=== PATIENT | male | born 1950 | race Caucasian/White ===

== ENCOUNTER → 2023-09-02 | Outpatient (CLI) | payer OTHER, SELFPAY ==
--- NOTE | 2023-09-02 | PROSBIL_PTH ---
PATIENT: TAHIR RYAN V LOC: [facility] U#:[id number] AGE/SX: 73/M ROOM: RE09/02/[address]: Dr. Justin Feliciano MD : [id number] BED: DIS: 09/02/2023 SPEC #: [id number] RECD: 09/02/23 16:16 STATUS: JUDD KIMMY #: [id number] KEVIN: 09/02/23 00:[address]: Justin Feliciano DEPT: SURGICAL PATHOLOGY RECD BY: Quincy Gordillo Tissues: A - PROSTATE RIGHT B - PROSTATE RIGHT C - PROSTATE RIGHT D - PROSTATE LEFT E - PROSTATE LEFT F - PROSTATE LEFT Procedures: PROSTATE BX HEADER OPERATION: Prostate biopsy PRE-OP DIAGNOSIS: Elevated PSA TISSUE SUBMITTED: A - Right apex, B - Right mid, C - Right base, D - Left apex, E - Left mid, F - Left base MICROSCOPIC DIAGNOSIS A. Right prostate, apex, core biopsy: Prostatic adenocarcinoma. Rizwana grade: 4+4=8 Number of cores involved: 1/1 Proportion of tissue involved: ~50% Perineural invasion: Not identified. Greatest tumor length: 0.5 cm B. Right prostate, mid, core biopsy: Prostatic adenocarcinoma. Bypro grade: 4+3=7 Number of cores involved: 1/1 Proportion of tissue involved: ~75% Perineural invasion: Not identified. Greatest tumor length: 1.0 cm C. Right prostate, base, core biopsy: Prostatic adenocarcinoma. Rizwana grade: 5+3=8 Number of cores involved: 1/1 Proportion of tissue involved: ~90% Perineural invasion: Present, focal. Greatest tumor length: 1.0 cm See comment. D. Left prostate, apex, core biopsy: Prostatic adenocarcinoma. Bypro grade: 3+4=7 Number of cores involved: 1/1 Proportion of tissue involved: 75% Perineural invasion: Present, focal. Greatest tumor length: 0.7 cm E. Left prostate, mid, core biopsy: Prostatic adenocarcinoma. Bypro grade: 5+4=9 Number of cores involved: 1/1 Proportion of tissue involved: ~75% Perineural invasion: Not identified. Greatest tumor length: 0.8 cm F. Left prostate, base, core biopsy: Prostatic adenocarcinoma. Bypro grade: 5+4=9 Number of cores involved: 1/1 Proportion of tissue involved: ~75% Perineural invasion: Not identified. Greatest tumor length: 0.8 cm SJ:manjinder 09/04/2023 COMMENT C. Tertiary pattern 4 is also noted. Case has been reviewed in consultation with Dr. Ward who concurs with the above diagnosis. IDC:AM MICROSCOPIC DESCRIPTION Slides are reviewed. GROSS DESCRIPTION A - Received is one container designated prostate, right apex. The specimen consists of one elongated fragment of light baumann-white soft tissue measuring 1.2 cm in length and 0.1 cm in diameter. The specimen is totally submitted in one cassette. B - Received is one container designated prostate, right mid. The specimen consists of one elongated fragment of light baumann-white soft tissue measuring 1.5 cm in length and 0.1 cm in diameter. The specimen is totally submitted in one cassette. C - Received is one container designated prostate, right base. The specimen consists of one elongated fragment of light baumann-white soft tissue measuring 1.2 cm in length and 0.1 cm in diameter. The specimen is totally submitted in one cassette. D - Received is one container designated prostate, left apex. The specimen consists of one elongated fragment of light baumann-white soft tissue measuring 1.4 cm in length and 0.1 cm in diameter. The specimen is totally submitted in one cassette. E - Received is one container designated prostate, left mid. The specimen consists of one elongated fragment of light baumann-white soft tissue measuring 1.5 cm in length and 0.1 cm in diameter. The specimen is totally submitted in one cassette. F - Received is one container designated prostate, left base. The specimen consists of one elongated fragment of light baumann-white soft tissue measuring 1.5 cm in length and 0.1 cm in diameter. The specimen is totally submitted in one cassette. / SJ:rg 09/03/2023 TC:0 CPT: G0146
== END | disposition home or self-care (01) ==
LOC: LABSPEC 17:11
PROVIDERS: Referring Provider Urology; Visit Provider Urology
DX: R97.20 Elevated prostate specific antigen [PSA] (principal)
CPT/HCPCS: 88305; G0416

== ENCOUNTER 2023-12-03 09:08 | Day surgery (SDC) | payer SELFPAY, OTHER ==
[2023-12-03] VITALS (7 sets, daily range): BP systolic 104–139; BP diastolic 55–75; PULSE 56–68; RESP 12–16; TEMP 35.9–36.6; O2SAT 93–100; BMI 23.8
[2023-12-03] MEDS: Lactated Ringers 1,000 ML 15 ML IV (09:48)
--- NOTE | 2023-12-03 09:59 | HP.PCM_ITS ---
HPI - General General Date of Service: 12/03/23 Chief Complaint: Prostate cancer HPI Narrative TAHIR RYAN, is a 73 M who presents 73-year-old male was elected to undergo radiation therapy for prostate cancer today working to place [employer] gel and also markers in the prostate [facility] Medical History (Updated 11/25/23 @ 14:40 by Mariano Heath) Atrial fibrillation Benign prostatic hyperplasia (BPH) with urinary urgency Cardiology follow-up encounter Cystic mass of pancreas Dermatitis Diabetes mellitus Dysuria Elevated PSA Hypertension Nocturia Phlebitis and thrombophlebitis Primary prostate cancer identified by needle biopsy (T1c) Psoriasis Smoker Wears glasses Home Medications diltiazem HCl 180 mg capsule,extended release 24 hr 180 mg PO DAILY 09/19/23 [History Last Taken Unknown] hydrochlorothiazide 25 mg tablet 25 mg PO DAILY 09/19/23 [History Last Taken 12/03/23] saw palm 160 mg-vit E 100 unit-selen 100 rcv-fras-tjkubb-pygeum tablet ([employer]) 1 tab PO .ALONDRA 09/19/23 [History Last Taken Unknown] saw palmetto 160 mg capsule 160 mg PO BID 09/19/23 [History Last Taken Unknown] tamsulosin 0.4 mg capsule (Flomax) 0.4 mg PO .BID 09/19/23 [History Last Taken Unknown] glipizide 5 mg tablet 5 mg PO DAILY 10/07/23 [History Last Taken 12/03/23] leuprolide (3 month) 22.5 mg (3 month) subcutaneous syringe (Eligard) 22.5 mg subcut .Q3MON 11/25/23 [History Last Taken Unknown] Allergy/AdvReac Type Severity Reaction Status Date / Time hydrocodone [From Vicodin] Allergy Unknown Other Verified 12/03/23 09:32 Family History Brother Prostate CA Mother Diabetes Daughter FH: kidney cancer Surgical History History of bilateral knee replacement Social History Smoking Status: Current every day smoker tobacco type: cigars alcohol intake: never Vital Signs Vital Signs Vital Signs: 12/03/23 09:34 12/03/23 09:34 Temperature 97.6 F L Temperature Source Temporal Pulse Rate 68 Respiratory Rate 12 Respiratory Pattern Normal Blood Pressure 139/75 H Blood Pressure Mean 96 Blood Pressure Source Monitor Blood Pressure Position Semi-Fowlers Blood Pressure Location Left Arm Pulse Ox 99 Oxygen Delivery Method Room Air Weight Weight: 63 kg Body Mass Index (BMI) 23.8
--- NOTE | 2023-12-03 10:00 | PCM.DC ---
Discharge Instructions Diet Discharge Diet: No restrictions Activity Discharge Activity: Return to Normal Activity and May Not Drive (while taking narcotic pain medications.) Dressing / Incision Call your doctor if you observe: Fever of 101 or Higher Follow Up Care Please Follow Up With: Justin Feliciano MD When: Call [phone] for an appointment Test Results: Test results from this visit will be discussed in further detail at your follow-up appointment, if applicable. Discharge Plan Admission Primary Reason for Your Visit: markers and gel Attending Provider: Justin Feliciano Primary Care Provider: Paulina Jacome NP Discharge Orders/Prescriptions Prescriptions: Continued glipizide 5 mg tablet 5 mg PO DAILY tamsulosin [Flomax] 0.4 mg capsule 0.4 mg PO .BID diltiazem HCl 180 mg capsule,extended release 24hr 180 mg PO DAILY hydrochlorothiazide 25 mg tablet 25 mg PO DAILY Prostate Health 160-100-100 mg-unit-mcg tablet 1 tab PO .ALONDRA saw palmetto 160 mg capsule 160 mg PO BID Rx Instructions: give with meal/snack Eligard (3 month) 22.5 mg syringe 22.5 mg subcut .Q3MON Other Ambulatory Orders: 12 Lead EKG (Routine) Location: None Selected Ordered By: Dr. Raphael Linton Referrals / Follow Up: Paulina Jacome NP, [employer]-[facility] [Primary Care Provider] - Disposition Disposition (needs filled in before D/C Order can be placed): Home, Self Care
--- OUTSIDE RECORDS SUMMARY | 2023-12-03 10:01 | XMS RPT_ITS | CCD ---
Author Name Unknown Address [address] [place] [address] Organization [facility] Care Team Providers Care Drop Forger Name Role Phone Clark Jacome CNP Primary Care Pr ovider CLARK JACOME NP Consulting Unavailab le Chaim POWELL Attending Unavailable Chaim POWELL Admitting Unavailable Chaim POWELL Primary Care Unavailable PROVIDER, UNKNOWN Consulting Unavailable PROVIDER, UNKNOWN Consulting Unavailable CLARK JACOME NP Consulting Unavailab le CLARK JACOME NP Attending Unavailab le CLARK JACOME NP Admitting Unavailab le CLARK JACOME NP Primary Care Unavailab le PROVIDER, UNKNOWN Consulting Unavailable PROVIDER, UNKNOWN Consulting Unavailable CLARK JACOME NP Consulting Unavailab GERRI Gallagher Primary Care Unavailable GERRI SOSA Attending Unavailable GERRI SOSA Admitting Unavailable PROVIDER, UNKNOWN Consulting Unavailable PROVIDER, UNKNOWN Consulting Unavailable Chaim POWELL Admitting Unavailable Chaim POWELL Primary Care Unavailable Chaim POWELL Attending Unavailable CLARK JACOME LOOM REPAIRER Consulting Unavailab le PROVIDER, UNKNOWN Consulting Unavailable PROVIDER, UNKNOWN Consulting Unavailable CLARK JACOME NP Consulting Unavailab GERRI Gallagher Primary Care Unavailable GERRI SOSA Attending Unavailable GERRI SOSA Admitting Unavailable PROVIDER, UNKNOWN Consulting Unavailable PROVIDER, UNKNOWN Consulting Unavailable Chaim POWELL Attending Unavailable Chaim POWELL Admitting Unavailable Chaim POWELL Primary Care Unavailable CLARK JACOME NP Consulting Unavailab le PROVIDER, UNKNOWN Consulting Unavailable PROVIDER, UNKNOWN Consulting Unavailable CLARK JACOME NP Consulting Unavailab le CLARK JACOME NP Attending Unavailab le HOFSTETTER, CLARK LOOM REPAIRER Admitting Unavailab CLARK Rouse LOOM REPAIRER Primary Care Unavailab le PROVIDER, UNKNOWN Consulting Unavailable PROVIDER, UNKNOWN Consulting Unavailable CLARK BAXTER Unavailable ADALBERTO SIMENTAL Unavailable COSMO GLOVER Unavailable Unavailable ALEJANDRA BENSON, MADISON Love Unavailable YAO GREGORIO MD Unavailable Justin Powell Unavailable Unavailable Chaim SONI MD Unavailable JOSE G BENSON, KAYLIE Branch Unavailable Radha Vega Unavailable Unavailable JO BENSON, ALIRIO Jin Unavailable HUMBERTO BENAVIDES, EVAN Unavailable Unavailable CHERYL BENAVIDES, SARAY Unavailable UnavailVALENCIA Jackson Unavailable Unavailable XU BENSON, Jer CLARK Unavailable [phone] Grace Giraldo Unavailable Unavailable Cristel Soni Unavailable Unavailable Lelia Fernandez Unavailable Unavailable Claudio BENAVIDES, Kelley Unavailable Unavailable Unavailable Unavailable CLARK JACOME Primary Care Camilla vailaARTIE Dee Referring Unavailable CLARK JACOME KAREEM Primary Care Camilla vajose angelble ARTIE KANG Attending Unavailable CLARK JACOME Primary Care Camilla vailaARTIE Dee Referring Unavailable SERVANDO LOPES Attending Unavailable Allergies Allergy Classification Reported Allergen(s) Allergy Type Date of Onset Reaction(s) Facility (1 source) Acetaminophen / HYDROcodone Drug Allergy [facility] Repository (6 sources) Acetaminophen / HYDROcodone; Translations: [HYDROCODONE-ACETA MINOPHEN] Drug Allergy 01-09-2023 Rash [facility] Medications Current Medications Medication Drug Class(es) Dates Sig (Normalized) Sig (Original) glipiZIDE er 5 mg 24 hr extended release oral tablet (4 sources) Sulfonylurea Start: 09-19-2023 glipiZIDE ER 5 mg tablet, extended release 24 hr ; 1 (one) tablet daily for 90 days Quantity: 90 {Tablet} Refills: 0 Ordered: 19-Sep-2023 LORY JACOME Start: 19-Sep-2023 Completed/Discontinued Medications Medication Drug Class(es) Dates Sig (Normalized) Sig (Original) amoxicillin 500 mg oral capsule (2 sources) Penicillin-class Antibacterial Start: 02-03-2018 End: 02-13-2018 take 1 tablet by mouth three times daily Amoxicillin 500 MG Oral Capsule ; 1 (one) Tablet three times daily for 10 days Quantity: 30 {Capsule} Refills: 0 Ordered: 04-Aug-2018 MD KAYLIE ARAIZA Start: 03-Feb-2018 End: 13-Feb-2018 Status: Inactive Comments: medication to be dispensed in office Problems Active Problems Problem Classification Problem Date Documented Date Episodic/Chronic Administrative/social admission (12 sources) Advance directive discussed with patient; Translations: [Other specified counseling] 09-19-2023 Episodic Allergic reactions (6 sources) Eczema; Translations: [Dermatitis, unspecified] 09-19-2023 Episodic Anal and rectal conditions (4 sources) Anal fissure; Translations: [Anal fissure, unspecified] 09-05-2011 Episodic Cancer of prostate (2 sources) Malignant neoplasm of prostate; Translations: [Malignant neoplasm of prostate] Onset: 09-15-2023 Chronic Cardiac dysrhythmias (8 sources) Paroxysmal atrial fibrillation; Translations: [Paroxysmal atrial fibrillation] 09-19-2023 Chronic Chronic obstructive pulmonary disease and bronchiectasis (2 sources) Bronchitis; Translations: [Bronchitis, not specified as acute or chronic] 12-16-2017 Episodic Diabetes mellitus with complications (19 sources) Type 2 diabetes mellitus with diabetic dermatitis; Translations: [Type 2 diabetes mellitus] Onset: 07-03-2023 09-19-2023 Chronic Diabetes mellitus without complication (1 source) Other specified diabetes mellitus without complications; Translations: [Other specified diabetes mellitus without complication, without long-term current use of insulin (HCC)] Onset: 11-25-2023 Chronic Diabetes mellitus without complication (2 sources) Increased glucose level; Translations: [Other abnormal glucose] 06-30-2014 Episodic Diverticulosis and diverticulitis (1 source) Diverticulosis of large intestine without perforation or abscess without bleeding; Translations: [Diverticulosis of large intestine without perforation or abscess without bleeding] Onset: 09-15-2023 Chronic Essential hypertension (17 sources) Essential (primary) hypertension; Translations: [Benign hypertension] Onset: 07-03-2023 09-19-2023 Chronic Hyperplasia of prostate (1 source) Benign prostatic hyperplasia without lower urinary tract symptoms; Translations: [Benign prostatic hyperplasia without lower urinary tract symptoms] Onset: 09-15-2023 Chronic Lymphadenitis (1 source) Enlarged lymph nodes, unspecified; Translations: [Enlarged lymph nodes, unspecified] Onset: 09-15-2023 Episodic Other and unspecified benign neoplasm (1 source) Benign neoplasm of pancreas; 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] Onset: 11-25-2023 Episodic Other infections; including parasitic (4 sources) Infestation by Sarcoptes scabiei lalo hominis; Translations: [Scabies] 11-07-2021 Episodic Other inflammatory condition of skin (6 sources) Psoriasis; Translations: [Psoriasis, unspecified] 09-19-2023 Chronic Past or Other Problems Problem Classification Problem Date Documented Date Episodic/Chronic Diabetes mellitus without complication (8 sources) Diabetes mellitus without complication 09-19-2023 Other connective tissue disease (3 sources) Pain in right leg; Translations: [Pain in right leg] Onset: 01-06-2023 Episodic Unclassified (2 sources) !Patient notification of lab results - LORY Fair. The test(s) that you had done were/was blood work. You should call our office if you have any questions. Note for !Patient notification of lab results : Your blood work associated with the pancreas was elevated. We will send this on to Dr. Gregorio. However, your a1c is much better at 7.9. I'm praying for you and will continue to pray. 09-22-2023 Unclassified (2 sources) [ADDITIONAL REASON] Transition into care - The patient is transitioning into care from another physician (DR Powell) and a summary of care was reviewed. 09-19-2023 Unclassified (2 sources) [ADDITIONAL REASON] Prostate Cancer - Note for Prostate cancer : recently dx with prostate cancer with Dr Powell. Was given a chemo shot this week and will start radiation at [facility] 10-07-23. 09-19-2023 Unclassified (2 sources) !Patient notification of lab results - LORY Fair. The test(s) that you had done were/was blood work. Your tests were not to goal You should call our office to schedule a referral and if you have any questions. Please follow up as scheduled. Note for !Patient notification of lab results : Your PSA has gone up significantly. We need to refer you for further evaluation. Also, your A1c is 9.5. We can add medication or you can keep monitoring it to make sure it is coming down. Please let me know about this and the referral. Thanks! 07-04-2023 Unclassified (6 sources) [ADDITIONAL REASON] HYPERTENSION - There has been no associated chest pain, dyspnea or edema. 07-03-2023 Unclassified (2 sources) Follow-up after ER visit - The diagnosis of thrombophlebitis right leg. The ER visit was at [facility]. Date:01/04/23. Note for Follow-up after ER visit : Pt said his leg feels better. Swelling is almost gone. He c/o pain when he elevates his leg. He uses a heating pad to relive the pain. Doppler was negative. 01-09-2023 Unclassified (2 sources) [ADDITIONAL REASON] Transition into care - The patient is transitioning into care from an emergency room and a summary of care was reviewed. 01-09-2023 Unclassified (2 sources) [ADDITIONAL REASON] Rash - Note for Rash : Requests refill of hydroxyzine d/t itching. States diagnosed w/ psoriasis per Dr. Mcclure. Tremfya injection Q8 weeks. 07-26-2022 Unclassified (2 sources) !Patient notification of lab results - LORY Fair. The test(s) that you had done were/was an A1C (three month sugar average). The results of your testing were stable for your medical condition . You should call our office if you have any questions. Please continue your current medication/therapy and follow up as scheduled. Note for !Patient notification of lab results : Your a1c went up but is still under control for having diabetes. It went from 6.6 to 7.1. Please call with any questions. Thanks! 06-24-2022 Unclassified (2 sources) !Patient notification of lab results - LORY Fair. The test(s) that you had done were/was blood work. Your tests showed the following abnormalities: elevated PSA . You should call our office to schedule a referral and if you have any questions. Please follow up as scheduled. Note for !Patient notification of lab results : Your a1c is much better- it's down to 6.6. You may stop the metformin if you like or go down to once a day or every other day. However, the PSA is too high. I would suggest going to a urologist for further testing. Please call to schedule this. Thanks. 03-18-2022 Unclassified (2 sources) !Patient notification of lab results - LORY Fair. The test(s) that you had done were/was an A1C (three month sugar average). Your tests were not to goal You should call our office for a new prescription and if you have any questions. Note for !Patient notification of lab results : I think the itchiness and rash is from high blood sugar. Your a1c was 9.0. It should be under 7. There are different things we can do to lower sugar, but it will likely take medication to bring it down quickly. Please call if you would like to start a prescription. Thanks! 11-14-2021 Unclassified (2 sources) Scabies - Note for Scabies : Seen on 11/02/21, med refiled on 11/05/21. rash not getting any better per pt. Pt. has used 2 tubes of cream and the rash is unchanged and itchy. 11-12-2021 Unclassified (2 sources) Rash - Note for Rash : Patient was seen by Dr. Araiza 09/11/21 for skin rash ( entire body ) and treated with Decadron/Kenalog IM and oral Prednisone. Rash and profuse itching persists. Patient thinks may need to see Brain Surgeon. 11-02-2021 Unclassified (2 sources) Insect Bite/Sting - The insect causing the bite/sting is thought to be a tick. Note for Insect bite/sting : Spouse pulled off of right lower back 3 days age. Had difficulty removing the tick, dark spot remains. 09-28-2021 Unclassified (2 sources) Rash - The rash has been occurring for 6 months. The rash is characterized as red and raised above the skin. The rash was first seen on the upper extremity. It spread to the entire body. There has been associated itching. 09-11-2021 Unclassified (2 sources) cough - The cough has been occurring for 4 days. The symptoms have been associated with runny nose and wheezing. Note for cough : Cough prod, expect grayish 02-03-2018 Unclassified (2 sources) cough - The cough has been occurring for 1 week. The cough is characterized as dry. The symptoms have been associated with hoarseness, sore throat and wheezing (chest gets tight.), while the symptoms have not been associated with fever. 12-16-2017 Unclassified (2 sources) Laboratory Test Results, Follow up - Lab results: elevated PSA. Note for Discuss procedure results : Here for exam. 07-28-2014 Unclassified (2 sources) [ADDITIONAL REASON] Eczema - Note for Eczema : Last seen 1 month ago. Pt said it's better. 07-28-2014 Unclassified (2 sources) !Patient notification of lab results 1 - [facility]. The test(s) that you had done were/was blood work (The bad (LDL) cholesterol was 77 and the good (HDL) was 24. The goal for the good is to get it up to 40. Exercise is the best method of raising this. Your glucose was very slightly elevated at 103 (goal is to be less than 100 when fasting). Your 3 months sugar (A1C) was 6.1 which places you in the pre-diabetic category. At this time, I would mainly recommend that you watch your diet and try to reduce simple sugars and increase your exercise. Losing weight is often a good way to help prevent this from progressing.Your PSA (blood test for prostate cancer) was slightly elevated. Please keep you follow up appointment and we will discuss it further and do a prostate exam. Having an elevated test does not alway mean that a patient has prostate cancer so it's very important that you follow up.Finally, your blood count and thyroid function test were normal). You should call our office if you have any questions. Please follow up as scheduled. 07-02-2014 Unclassified (2 sources) Rash - The rash has been occurring for 2 months. The rash was first seen on the upper extremity and the lower extremity. There has been associated itching. Note for Rash : Here for exam. 06-30-2014 Unclassified (2 sources) [ADDITIONAL REASON] Fatigue - Note for Fatigue : Also c/o dry mouth and has hx of increased blood sugar. Here for exam. 06-30-2014 Unclassified (2 sources) Rash - The onset of the rash has been acute and has been occurring in a persistent pattern for 5 weeks. The course has been constant. The rash is characterized as red and raised above the skin. The rash was first seen on the upper extremity (hands). There has been no progression. There has been associated itching, while there has been no fever. 01-11-2012 Unclassified (2 sources) Rectal Pain - Symptoms include perianal pain. Onset was gradual. Current treatment includes topical hydrocortisone creams. Past treatment has included topical hydrocortisone creams and oral antibiotics. Note for Rectal Pain : Also using triple anibiotic ointment. Here for exam. 09-05-2011 Results Test Name Value Interpretation Reference Range Facil ity Vital Signs Date Time Vital Sign Value Performing Clinician Facility 10-01-2023 09:09-0500 Body height 158.8 cm Artie Kang MD Work Phone: [facility] 10-01-2023 09:09-0500 Body temperature 97.81 [degF] Artie Kang MD Work Phone: [facility] 10-01-2023 09:09-0500 Body weight 65.77 kg Artie Kang MD Work Phone: [facility] 10-01-2023 09:09-0500 Diastolic blood pressure 74 mm[Hg] Artie Kang MD Work Phone: [facility] 10-01-2023 09:09-0500 Heart rate 71 /min Artie Kang MD Work Phone: [facility] 10-01-2023 09:09-0500 SaO2% (BldA) [Mass fraction] 99 % Artie Kang MD Work Phone: [facility] 10-01-2023 09:09-0500 Systolic blood pressure 174 mm[Hg] Artie Kang MD Work Phone: [facility] 09-19-2023 14:32-0500 Diastolic blood pressure 84 mm[Hg] CLARK ANGELES-Ioana Work Phone: [facility] Encounters Encounter Date Encounter Type Care Provider Facility Start: 11-25-2023 End: 11-25-2023 ambulatory CLARK KAREEM KLEVER Facility:[facility] Start: 11-21-2023 End: 11-21-2023 ambulatory CLARK SERNA JAYLINROBINA Facility:[facility] Start: 10-08-2023 Telephone encounter Artie starks MD Work Phone: Hematology/Oncology Procedures Date Procedure Procedure Detail Performing Clinician Start: 07-03-2023 PSA screening CLARK LOZOYA Plan of Treatment Date Care Activity Detail Author Start: 07-03-2026 Diabetes Screening Diabetes Screening [facility] Start: 07-04-2023 Influenza vaccination Influenza Vaccine (#1) [facility] Start: 01-09-2023 Adv care pln/ no alt dcsn mkr docd or refusal ADV CARE PLAN DISCUSSED & DOCUMENTED, NO SURROGATE OR PLAN (1124F) Start: 09-Jan-2023 Intent [employer]; [facility] [employer]. Start: 11-03-2022 Advance Directive Discussion Advance Directive Discussion [facility] Start: 11-03-2022 Depression Assessment Depression Assessment [facility] Start: 12-16-2017 End: 12-16-2017 Collj & interpj physiol data min 30 min ea 30 d QUERY OARRS REPORT ([id number]) Date: 16-Dec-2017 [facility] [employer]; [facility] [employer]. Start: 07-28-2014 Patient Education Prostate Cancer: prostate Indication: Elevated PSA Start: 28-Jul-2014 Instruction Type: Patient Education [employer]; [employer]. Start: 07-28-2014 Blood occult peroxidase actv qual feces 1 deter OCCULT BLOOD FECES SCREEN X3 (IN OFFICE) ([id number]) Start: 28-Jul-2014 13:35 Request [employer]; [place] [employer] [facility] [employer]. Start: 2013 Pneumococcal Vaccine: 65+ (1 - PCV) Pneumococcal Vaccine: 65+ (1 - PCV) [facility] Start: 2008 RSV Vaccine (1 - 1-dose 60+ series) RSV Vaccine (1 - 1-dose 60+ series) [facility] Start: 1998 Shingrix Vaccine (1 of 2) Shingrix Vaccine (1 of 2) [facility] Start: 1993 Cologuard (FIT-DNA) Cologuard (FIT-DNA) [facility] Start: 1993 Colonoscopy Colonoscopy [facility] Start: 1993 Colorectal Cancer Screening Colorectal Cancer Screening [facility] Start: [address] Colonography [facility] Start: 1993 Fecal Occult Blood Fecal Occult Blood [facility] Start: 1993 Sigmoidoscopy Sigmoidoscopy [facility] Start: 1983 Lipid 1996 panel - Serum or Plasma Lipid Screening [facility] Start: 1967 Urine microalbumin profile DTaP,Tdap,Td Vaccine (1 - Tdap) [facility] Start: 1966 Hepatitis C Screening Hepatitis C Screening [facility] Start: 1948 Covid-19 Vaccine (#1) Covid-19 Vaccine (#1) [facility] Immunizations Immunization Date Immunization Notes Care Provider [facility] influenza virus vaccine, unspecified formulation CLARK JACOME DELICATESSEN CLERK-C Work Phone: [facility], [facility].; [facility], [facility] Payers Date Payer Category Payer Unknown [id number] 2023 Unknown 2 2023 Unknown [id number] 1948 Unknown [id number] [id number] 1948 Unknown [id number] [id number] 1948 Unknown [id number] [id number] 1948 Unknown [id number] [id number] 1948 Unknown [id number] 1948 Unknown [id number] [id number] Social History Date Type Detail Facility Tobacco smoking status DEIS Tobacco smoking consumption unknown [facility] Start: 1950 Sex Assigned At Not on file [facility] Start: 10-01-2023 [facility] Start: 10-01-2023 Tobacco smoking status NHIS Smokes tobacco daily [facility] History of tobacco use Cigar Smoker [facility] Start: 10-01-2023 Tobacco use and exposure Smokeless tobacco non-user [facility] Start: 10-01-2023 History of Social function [facility] Start: 10-01-2023 Tobacco Comment Smokes one pac k of cigars weekly [facility] Alcohol Use: Alcohol Use: ; N ever used alcohol[facility] Tobacco use: Tobacco use: ; Lilly cespedes. Current every day smoker. [employer] [facility]; [employer] [facility]. [facility] Work Phone: [facility]. Work Phone: Progress note 11-21-2023 Note Date & Type Note Facility 11-21-2023 Note HNO ID: [id number] Author: LUCIA OLSEN RT(R) Service: ? Author Type: Technologist Type: Progress Notes Filed: 11/21/2023 11:35 Note Text: Radiology Service Progress Note DATE OF SERVICE: November 21, 2023 TIME: 11:34 AM PATIENT IDENTITY VERIFICATION COMPLETED USING TWO (2) STANDARD IDENTIFIERS: Name and Date of confirmed by patient verbally. FALL SCREENING: Has the patient had 2 falls in the last year or 1 fall with injury or currently using an Ambulatory Assistive Device (Walker, Cane, Wheelchair, Crutches, etc.)? No PATIENT GENDER DATA: Male PATIENT RELEVANT IMPLANT DATA REVIEWED: Yes ALLERGIES: Reviewed and unchanged CONTRAST ALLERGY: NO. EXAM: MRI - CONTRAST TYPE: GROUP II PERIPHERAL IV DATA: Ambulatory: A peripheral IV was started in the Left antecubital site with a Angio cath: 22 gauge. RADIOLOGY DEPARTMENT: MR; Exam(s) Completed: Body: Pancreas/Biliary SIGNATURE: Lucia Olsen, RT(R) PATIENT NAME: Tahir Pizano DATE: November 21, 2023 TIME: 11:34 AM [facility] Note 10-08-2023 Telephone Encounter - Leda Hackett - 10/08/2023 8:46 AM ESTTelephone Encounter - Joselyn Rocha - 10/08/2023 8:31 AM EST Note Date & Type Note Facility 10-08-2023 Miscellaneous Notes Formattin g of this note might be different from the original. Patient informed Patient's imaging from [facility] is uploaded. Dr. Kang - please review. This PSS LM for patient to return call. When patient returns call, please advise him that his imaging CD from [place] is ready for him to crop picker . (Disc is in Patient Stunt Performer box in [facility] Front Office.) Joselyn Rocha documented in this encounter [facility] Progress note 10-01-2023 Note Date & Type Note Facility 10-01-2023 Note HNO ID: [id number] Author: Artie Kang MD Service: ? Author Type: Physician Type: Progress Notes Filed: 10/01/2023 1:02 PM Note Text: HISTORY OF PRESENT ILLNESS: Tahir Pizano is a 73 year old male recent dx prostate cancer, receiving eligard with urology, RT planned at [facility]. 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 Here for evaluation of this. Feels well. CLINICAL IMPRESSION: Cystic pancreatic mass RECOMMENDATION/PLAN: 1. Will obtain images for review 2. Next step based on [facility] radiology recommendations Written and verbal health teaching given to patient, patient verbalizes understanding and agrees with treatment plan. PAST MEDICAL HISTORY Diagnosis Date Atrial fibrillation (HCC) Diabetes (HCC) Hypertension Prostate cancer (HCC) PAST SURGICAL HISTORY Procedure Laterality Date PROSTATE BIOPSY 09/02/2023 TOTAL KNEE REPLACEMENT Bilateral FAMILY HISTORY Problem Relation Age of Onset Diabetes Mother Heart Father Prostate Cancer Brother Social History Tobacco Use Smoking status: Every Day Types: Cigars Smokeless tobacco: Never Tobacco comments: Smokes one pack of cigars weekly ALLERGIES: ALLERGIES Allergen Reactions Vicodin [Hydrocodon* Rash CURRENT OUTPATIENT MEDICATIONS: glipiZIDE (GLUCOTROL XL) 5 mg 24 hr tablet Take 1 tablet by mouth once daily. hydroCHLOROthiazide 25 mg tablet Take 1 tablet by mouth once daily. dilTIAZem CD (CARDIZEM CD, CARTIA XT) 180 mg 24 hr capsule Take 1 capsule by mouth once daily. tamsulosin (FLOMAX) 0.4 mg Take 1 capsule by mouth once daily. REVIEW OF SYSTEMS: GENERAL: No fever, night sweats, weight loss or malaise. All other reviewed and negative other than HPI. PHYSICAL EXAMINATION: VITAL SIGNS: BP 174/74 Pulse 71 Temp (Src) 97.8 (Temporal) Ht 5' 2.5 (1.59m) Wt 145 lb (65.8kg) SpO2 99% BMI 26.08 kg/(m2). GENERAL APPEARANCE: Well appearing, in no acute distress, alert and oriented x3, well-hydrated, well nourished. I spent a total of 60 minutes on the date of the service which included preparing to see the patient, [id number] patient care, completing clinical documentation, obtaining and/or reviewing separately obtained history, counseling and educating the patient/family/caregiver, communicating with other HCPs (not separately reported), independently interpreting results (not separately reported), and communicating results to the patient/family/caregiver. Electronically Signed: Artie Kang MD October 01, 2023 12:47 PM [facility] History of Present illness Narrative 10-01-2023 Artie Kang MD - 10/01/2023 12:47 PM EST Note Date & Type Note Facility 10-01-2023 History of Presen t illness Narrative HISTORY OF PRESENT ILLNESS: Tahir Pizano is a 73 year old male recent dx prostate cancer, receiving eligard with urology, RT planned at [facility]. 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 Here for evaluation of this. Feels well. CLINICAL IMPRESSION: Cystic pancreatic mass RECOMMENDATION/PLAN: 1. Will obtain images for review 2. Next step based on [facility] radiology recommendations Written and verbal health teaching given to patient, patient verbalizes understanding and agrees with treatment plan. PAST MEDICAL HISTORY Diagnosis Date Atrial fibrillation (HCC) Diabetes (HCC) Hypertension Prostate cancer (HCC) PAST SURGICAL HISTORY Procedure Laterality Date PROSTATE BIOPSY 09/02/2023 TOTAL KNEE REPLACEMENT Bilateral FAMILY HISTORY Problem Relation Age of Onset Diabetes Mother Heart Father Prostate Cancer Brother Social History Tobacco Use Smoking status: Every Day Types: Cigars Smokeless tobacco: Never Tobacco comments: Smokes one pack of cigars weekly ALLERGIES: ALLERGIES Allergen Reactions Vicodin [Hydrocodon* Rash CURRENT OUTPATIENT MEDICATIONS: glipiZIDE (GLUCOTROL XL) 5 mg 24 hr tablet Take 1 tablet by mouth once daily. hydroCHLOROthiazide 25 mg tablet Take 1 tablet by mouth once daily. dilTIAZem CD (CARDIZEM CD, CARTIA XT) 180 mg 24 hr capsule Take 1 capsule by mouth once daily. tamsulosin (FLOMAX) 0.4 mg Take 1 capsule by mouth once daily. REVIEW OF SYSTEMS: GENERAL: No fever, night sweats, weight loss or malaise. All other reviewed and negative other than HPI. PHYSICAL EXAMINATION: VITAL SIGNS: BP 174/74 Pulse 71 Temp (Src) 97.8 (Temporal) Ht 5' 2.5 (1.59m) Wt 145 lb (65.8kg) SpO2 99% BMI 26.08 kg/(m^2). GENERAL APPEARANCE: Well appearing, in no acute distress, alert and oriented x3, well-hydrated, well nourished. I spent a total of 60 minutes on the date of the service which included preparing to see the patient, [id number] patient care, completing clinical documentation, obtaining and/or reviewing separately obtained history, counseling and educating the patient/family/caregiver, communicating with other HCPs (not separately reported), independently interpreting results (not separately reported), and communicating results to the patient/family/caregiver. Electronically Signed: Artie Kang MD October 01, 2023 12:47 PM documented in this encounter [facility] Note 09-23-2023 Telephone Encounter - Leda Hackett - 09/23/2023 2:49 PM ESTTelephone Encounter - Hoa Alvarez - 09/23/2023 2:22 PM EST Note Date & Type Note Facility 09-23-2023 Miscellaneous Notes Formattin g of this note might be different from the original. Scheduled with patient. Received referral from Nurse-Next New Either Provider DX: PROSTATE CA REF PROV: [facility] INS: [facility] [employer] [facility] 1ST ATTEMPT LM Placed red referral in PT tpo return call folder at [facility] desk documented in this encounter [facility] Note 08-15-2023 Telephone Encounter - Carly Francois - 08/15/2023 10:40 AM EDT Note Date & Type Note Facility 08-15-2023 Miscellaneous Notes Formattin g of this note might be different from the original. Referral - Problems with prostate/Bladder not emptying X1 - Left VM for the pt to contact the office. documented in this encounter [facility] Evaluation note Note Date & Type Note Facility documented in this encounter [facility] Summary Purpose Family History No Family History Records FoundNo Family History Records FoundNo Family History Records FoundNo Family History Records FoundNo Family History Records Found Advance Directives No Advanced Directives Records FoundNo Advanced Directives Records FoundNo Advanced Directives Records FoundNo Advanced Directives Records FoundNo Advanced Directives Records Found Additional Source Comments (unrecognized sect ion and content) No Status Records FoundNo Status Records FoundNo Status Records FoundNo Status Records FoundNo Status Records Found INFORMATION SOURCE (unrecogn ized section and content) DATE CREATED AUTHOR AUTHOR'S ORGANIZ ATION 08/29/2023 [facility] DATE CREATED AUTHOR AUTHOR'S ORGANIZ ATION 09/22/2023 [facility] DATE CREATED AUTHOR AUTHOR'S ORGANIZ ATION 11/24/2023 [facility] DATE CREATED AUTHOR AUTHOR'S ORGANIZ ATION 11/27/2023 Mary Nguyen [facility] Source Comments (unrecognize d section and content) In the event this informatio n is protected by the Federal Confidentiality of Alcohol and Drug Abuse Patient Records regulations: The Federal rules restrict any use of the information to criminally investigate or prosecute any alcohol or drug abuse patient.[facility] the event this information is protected by the Federal Confidentiality of Alcohol and Drug Abuse Patient Records regulations: The Federal rules restrict any use of the information to criminally investigate or prosecute any alcohol or drug abuse patient.[facility] the event this information is protected by the Federal Confidentiality of Alcohol and Drug Abuse Patient Records regulations: The Federal rules restrict any use of the information to criminally investigate or prosecute any alcohol or drug abuse patient.[facility] the event this information is protected by the Federal Confidentiality of Alcohol and Drug Abuse Patient Records regulations: The Federal rules restrict any use of the information to criminally investigate or prosecute any alcohol or drug abuse patient.[facility] Reason for Visit (unrecogniz ed section and content) Reason Comments New Patient Reason Comments New Patient Evaluation Reason Comments Imaging Care Teams (unrecognized sec tion and content) Drop Forger Relationship Specialty Start Date End Date JaylindangeloClark cárdenas CNP [id number] [place], [place] [id number] PCP - General Family Medicine 07/14/23 Drop Forger Relationship Specialty Start Date End Date Clark Jacome CNP [id number] [place], [place] [id number] PCP - General [facility] Medicine 07/14/23 Drop Forger Relationship Specialty Start Date End Date Clark Jacome CNP [address] [place] [phone] PCP - General Family Medicine 07/14/23 FOR RECORDS PERTAINING TO PATIENTS WHO ARE OR HAVE BEEN ENROLLED IN A CHEMICAL DEPENDENCY/SUBSTANCEABUSE PROGRAM, SOME INFORMATION MAY BE OMITTED. This clinical summary was aggregated from multiple sources. Caution should be exercised in using it in the provision of clinical care. This summary normalizes information from multiple sources, and as a consequence, information in this document may materially change the coding, format and clinical context of patient data. In addition, data may be omitted in some cases. CLINICAL DECISIONS SHOULD BE BASED ON THE PRIMARY CLINICAL RECORDS. [facility] [facility]. provides no warranty or guarantee of the accuracy or completeness of information in this document.
[2023-12-03 10:10] LABS: Bedside Glucose 104 mg/dL (74-106)
[2023-12-03] MEDS: Cefazolin 2 GM in 0.9% Normal Saline (100mL Bag) 100 ML IV (10:26)
[2023-12-03] MEDS: 0.9% Normal Saline (Pres. free 10 ML Vial (10:38)
--- NOTE | 2023-12-03 10:41 | OP.PCM_ITS ---
Report of Operation Date of Procedure: 12/03/23 Pre-Operative Diagnosis: prostate cancer Post-Operative Diagnosis: Same Surgery/Procedure Performed:: Placement of gold markers and spacer gel Description of Surgical Findings:: In the preoperative area I reviewed with the patient how the procedure is done we talked about the risk of the procedure including the risk of infection, bleeding, migration of the spacer gel, the patient is planning to have radiation to the prostate he understands that the spacer gel has demonstrated benefit in reducing the risk of toxicity from the ration radiation to the rectum but there is no guarantees that this spacer gel will prevent any serious complications or toxicity to the rectum or bowels. After reviewing this with the patient and his family organ to proceed with placement of a spacer gel matrix. Patient was taken back to the operating room after smooth induction of anesthesia he was placed supine on the table. The genitals and perineum were prepped and draped in usual sterile fashion. I then introduced a biplanar ultrasound probe into the rectum and performed ultrasonography and identified the Denonvilliers' fascia the prostate mid base and apex and seminal vesicles. The spacer gel mix was then prepared on the back table per manufactures instruction. Under ultrasound guidance in the midline perineum a bevel needle down we advanced through the perineum below the prostate into the space of Denonvilliers' fascia. This space which could be identified by ultrasound with a bright white layer between the prostate and the rectum. I then injected a puff of normal saline to identify the space further. After I confirmed that the needle was in the correct space in the mid prostate and the space of Denonvilliers' fascia between the rectum and the prostate. Then over the course of 15 seconds the gel matrix was injected slowly there was nice separation between the prostate and the rectum at the gel matrix was injected. The position of the gel matrix was confirmed by ultrasound. Then the injection needle was removed intact. The penis and testicles were prepped and draped in usual sterile fashion, ultrasound probe was placed into the rectum and biplanar ultrasound was performed on the prostate. Identified the base mid and apex of the prostate identified the transition zone prostate. Then using a needle the first medical technologist hematology was placed into the right base of the prostate, the second medical technologist hematology was placed in the left base of the prostate, and the third core marker was placed in the right apex of the prostate after all 3 markers were placed the placement of the markers were confirmed by ultrasonography. Surgeon: Justin Feliciano Type of Anesthesia: General Drains: none Admit VTE Documentation VTE Present on Admission: No VTE Mechan Device Prophylaxis: SCD's VTE Pharm Prophylaxis ordered?: No
[2023-12-03 11:16] LABS: Bedside Glucose 91 mg/dL (74-106)
== END 2023-12-03 12:06 | disposition home or self-care (01) ==
LOC: SDC 09:09 → AC 09:09
PROVIDERS: PCP Nurse Practitioner Family; Referring Provider Urology; Visit Provider Urology
PROC: (CPT 55874; principal; 2023-12-03 11:00)
DX: C61 Malignant neoplasm of prostate (principal); E11.9 Type 2 diabetes mellitus without complications; I10 Essential (primary) hypertension; Z80.42 Family history of malignant neoplasm of prostate; F17.210 Nicotine dependence, cigarettes, uncomplicated; Z96.653 Presence of artificial knee joint, bilateral
CPT/HCPCS: 55876; 82962; 93005; J7120; J2405; J3490

== ENCOUNTER → 2023-12-10 | Outpatient (CLI) | payer SELFPAY, OTHER ==
--- OUTSIDE RECORDS SUMMARY | 2023-12-10 06:56 | XMS RPT_ITS | CCD ---
Author Name Unknown Address [address] [place] [address] Organization [facility] Care Team Providers Care Pie Cutter Name Role Phone Clark Jacome CNP Primary [...] Unavailable Chaim POWELL Attending Unavailable CLARK JACOME HARNESS RIGGER Consulting Unavailab le PROVIDER, UNKNOWN Consulting Unavailable [...] JACOME NP Attending Unavailab le HOFSTETTER, CLARK HARNESS RIGGER Admitting Unavailab CLARK Rouse HARNESS RIGGER Primary Care Unavailab le PROVIDER, UNKNOWN Consulting Unavailable PROVIDER, UNKNOWN Consulting Unavailable CLARK BAXTER Unavailable ADALBERTO SIMENTAL Unavailable COSMO GLOVER Unavailable Unavailable ALEJANDRA BENSON, MADISON Love Unavailable [phone] YAO GREGORIO MD Unavailable Justin Powell Unavailable Unavailable Chaim SONI MD Unavailable JOSE G BENSON, KAYLIE Branch Unavailable Cornel ASHRAF, Radha Unavailable Unavailable JO BENSON, ALIRIO Jin Unavailable HUMBERTO BENAVIDES, EVAN Unavailable Unavailable CHERYL BENAVIDES, SARAY Unavailable UnavailVALENCIA Jackson Unavailable Unavailable XU BENSON, Jer CLARK Unavailable Grace Giraldo Unavailable Unavailable Cristel Soni Unavailable Unavailable Lelia Fernandez Unavailable Unavailable Claudio BENAVIDES, Kelley Unavailable Unavailable Unavailable Unavailable CLARK JACOME Primary Care Camilla vailable ARTIE KANG Referring Unavailable SERVANDO LOPES Attending Unavailable CLARK JACOME Primary Care Camilla vailable ARTIE KANG Referring Unavailable CLARK JACOME Primary Care Camilla vailable ARTIE KANG Attending Unavailable Allergies Allergy Classification Reported Allergen(s) Allergy Type Date of Onset Reaction(s) Facility (1 source) Acetaminophen / HYDROcodone Drug Allergy [facility] Repository (7 sources) Acetaminophen / HYDROcodone; Translations: [HYDROCODONE-ACETA MINOPHEN] Drug Allergy 01-09-2023 Rash [facility] Medications Current Medications Medication Drug Class(es) Dates Sig (Normalized) Sig (Original) glipiZIDE er 5 mg 24 hr extended release oral tablet (5 sources) Sulfonylurea Start: 09-19-2023 glipiZIDE ER 5 mg tablet, extended release 24 hr ; 1 (one) tablet daily for 90 days Quantity: 90 {Tablet} Refills: 0 Ordered: 19-Sep-2023 LORY JACOME Start: 19-Sep-2023 Completed/Discontinued Medications Medication Drug Class(es) Dates Sig (Normalized) Sig (Original) amoxicillin 500 mg oral capsule (3 sources) Penicillin-class Antibacterial Start: 02-03-2018 End: 02-13-2018 [...] Problem Date Documented Date Episodic/Chronic Administrative/social admission (18 sources) Advance directive discussed with patient; Translations: [Other specified counseling] 09-19-2023 Episodic Allergic reactions (9 sources) Eczema; Translations: [Dermatitis, unspecified] 09-19-2023 Episodic Anal and rectal conditions (6 sources) Anal fissure; Translations: [Anal fissure, unspecified] 09-05-2011 Episodic Cancer of prostate (2 sources) Malignant neoplasm of prostate; Translations: [Malignant neoplasm of prostate] Onset: 09-15-2023 Chronic Cardiac dysrhythmias (12 sources) Paroxysmal atrial fibrillation; Translations: [Paroxysmal atrial fibrillation] 09-19-2023 Chronic Chronic obstructive pulmonary disease and bronchiectasis (3 sources) Bronchitis; Translations: [Bronchitis, not specified as acute or chronic] 12-16-2017 Episodic Diabetes mellitus with complications (20 sources) Type 2 diabetes mellitus with diabetic dermatitis; Translations: [Type 2 diabetes mellitus] Onset: 07-03-2023 09-19-2023 Chronic Diabetes mellitus without complication (1 source) Other specified diabetes mellitus without complications; Translations: [Other specified diabetes mellitus without complication, without long-term current use of insulin (HCC)] Onset: 11-25-2023 Chronic Diabetes mellitus without complication (3 sources) Increased glucose level; Translations: [Other abnormal glucose] 06-30-2014 Episodic Diverticulosis and diverticulitis (1 source) Diverticulosis of large intestine without perforation or abscess without bleeding; Translations: [Diverticulosis of large intestine without perforation or abscess without bleeding] Onset: 09-15-2023 Chronic Essential hypertension (20 sources) Essential (primary) hypertension; Translations: [Benign hypertension] [...] Onset: 11-25-2023 Episodic Other infections; including parasitic (6 sources) Infestation by Sarcoptes scabiei lalo hominis; Translations: [Scabies] 11-07-2021 Episodic Other inflammatory condition of skin (9 sources) Psoriasis; Translations: [Psoriasis, unspecified] 09-19-2023 Chronic Past or Other Problems Problem Classification Problem Date Documented Date Episodic/Chronic Diabetes mellitus without complication (12 sources) Diabetes mellitus without complication 09-19-2023 Other connective tissue disease (3 sources) Pain in right leg; Translations: [Pain in right leg] Onset: 01-06-2023 Episodic Unclassified (3 sources) !Patient notification of lab results - [...] and will continue to pray. 09-22-2023 Unclassified (3 sources) [ADDITIONAL REASON] Transition into care - The patient is transitioning into care from another physician (DR Powell) and a summary of care was reviewed. 09-19-2023 Unclassified (3 sources) [ADDITIONAL REASON] Prostate Cancer - Note for Prostate cancer : recently dx with prostate cancer with Dr Powell. Was given a chemo shot this week and will start radiation at [place] 10-07-23. 09-19-2023 Unclassified (3 sources) !Patient notification of lab results - [...] this and the referral. Thanks! 07-04-2023 Unclassified (9 sources) [ADDITIONAL REASON] HYPERTENSION - There has [...] summary of care was reviewed. 01-09-2023 Unclassified (3 sources) [ADDITIONAL REASON] Rash - Note for Rash : Requests refill of hydroxyzine d/t itching. States diagnosed w/ psoriasis per Dr. Mcclure. Tremfya injection Q8 weeks. 07-26-2022 Unclassified (3 sources) !Patient notification of lab results - [...] call with any questions. Thanks! 06-24-2022 Unclassified (3 sources) !Patient notification of lab results - [...] call to schedule this. Thanks. 03-18-2022 Unclassified (3 sources) !Patient notification of lab results - [...] to start a prescription. Thanks! 11-14-2021 Unclassified (3 sources) Scabies - Note for Scabies : Seen on 11/02/21, med refiled on 11/05/21. rash not getting any better per pt. Pt. has used 2 tubes of cream and the rash is unchanged and itchy. 11-12-2021 Unclassified (3 sources) Rash - Note for Rash : Patient was seen by Dr. Araiza 09/11/21 for skin rash ( entire body ) and treated with Decadron/Kenalog IM and oral Prednisone. Rash and profuse itching persists. Patient thinks may need to see Spd Manager. 11-02-2021 Unclassified (3 sources) Insect Bite/Sting - The insect causing the bite/sting is thought to be a tick. Note for Insect bite/sting : Spouse pulled off of right lower back 3 days age. Had difficulty removing the tick, dark spot remains. 09-28-2021 Unclassified (3 sources) Rash - The rash has been occurring for 6 months. The rash is characterized as red and raised above the skin. The rash was first seen on the upper extremity. It spread to the entire body. There has been associated itching. 09-11-2021 Unclassified (3 sources) cough - The cough has been occurring for 4 days. The symptoms have been associated with runny nose and wheezing. Note for cough : Cough prod, expect grayish 02-03-2018 Unclassified (3 sources) cough - The cough has been occurring for 1 week. The cough is characterized as dry. The symptoms have been associated with hoarseness, sore throat and wheezing (chest gets tight.), while the symptoms have not been associated with fever. 12-16-2017 Unclassified (3 sources) Laboratory Test Results, Follow up - Lab results: elevated PSA. Note for Discuss procedure results : Here for exam. 07-28-2014 Unclassified (3 sources) [ADDITIONAL REASON] Eczema - Note for Eczema : Last seen 1 month ago. Pt said it's better. 07-28-2014 Unclassified (3 sources) !Patient notification of lab results 1 - [facility]. The test(s) that you had done were/was [...] Please follow up as scheduled. 07-02-2014 Unclassified (3 sources) Rash - The rash has been occurring for 2 months. The rash was first seen on the upper extremity and the lower extremity. There has been associated itching. Note for Rash : Here for exam. 06-30-2014 Unclassified (3 sources) [ADDITIONAL REASON] Fatigue - Note for Fatigue : Also c/o dry mouth and has hx of increased blood sugar. Here for exam. 06-30-2014 Unclassified (3 sources) Rash - The onset of the [...] there has been no fever. 01-11-2012 Unclassified (3 sources) Rectal Pain - Symptoms include perianal pain. Onset was gradual. Current treatment includes topical hydrocortisone creams. Past treatment has included topical hydrocortisone creams and oral antibiotics. Note for Rectal Pain : Also using triple anibiotic ointment. Here for exam. 09-05-2011 Unclassified (1 source) Transition into care - The patient is transitioning into care from an emergency room and a summary of care was reviewed. 01-09-2023 Unclassified (1 source) [ADDITIONAL REASON] Follow-up after ER visit - The diagnosis of thrombophlebitis right leg. The ER visit was at [facility]. Date:01/04/23. Note for Follow-up after ER visit : Pt said his leg feels better. Swelling is almost gone. He c/o pain when he elevates his leg. He uses a heating pad to relive the pain. Doppler was negative. 01-09-2023 Results Test Name Value Interpretation Reference Range Facil ity Vital Signs Date Time Vital Sign Value Performing Clinician Facility 10-01-2023 09:09-0500 Body height 158.8 cm Artie Kang MD Work Phone: [facility] 10-01-2023 09:09-0500 Body temperature 97.81 [degF] Artie Kang MD Work Phone: [facility] 10-01-2023 09:09-0500 Body weight 65.77 kg Artie Kang MD Work Phone: [facility] 10-01-2023 09:09-0500 Diastolic blood pressure 74 mm[Hg] Artie Kang MD Work Phone: [facility] 10-01-2023 09:09-0500 Heart rate 71 /min Artie Kang MD Work Phone: [facility] 10-01-2023 09:09-0500 SaO2% (BldA) [Mass fraction] 99 % Artie Kang MD Work Phone: [facility] 10-01-2023 09:09-0500 Systolic blood pressure 174 mm[Hg] Artie Kang MD Work Phone: [facility] 09-19-2023 14:32-0500 Diastolic blood pressure 84 mm[Hg] CLARK JACOME CABLE WORKER HELPER-C Work Phone: [facility]; [facility] Encounters Encounter Date Encounter Type Care Provider Facility Start: 11-25-2023 End: 11-25-2023 ambulatory CLARK JACMOE Facility:[facility] Start: 11-21-2023 End: 11-21-2023 ambulatory CLARK JACOME Facility:[facility] Start: 10-08-2023 Telephone encounter Artie starks MD Work Phone: Hematology/Oncology Procedures Date Procedure Procedure Detail Performing Clinician Start: 07-03-2023 PSA screening CLARK LOZOYA Plan of Treatment Date Care Activity Detail Author Start: 07-03-2026 Diabetes Screening Diabetes Screening [facility] Start: 07-04-2023 Influenza vaccination Influenza Vaccine (#1) [facility] Start: 01-09-2023 Adv care pln/ no alt dcsn mkr docd or refusal ADV CARE PLAN DISCUSSED & DOCUMENTED, NO SURROGATE OR PLAN (6062G) Start: 09-Jan-2023 Intent [facility] [employer] [facility]; [facility] Start: 11-03-2022 Advance Directive Discussion Advance Directive Discussion [facility] Start: 11-03-2022 Depression Assessment Depression Assessment [facility] Start: 12-16-2017 End: 12-16-2017 Collj & interpj physiol data min 30 min ea 30 d QUERY OARRS REPORT ([id number]) Date: 16-Dec-2017 [facility] [employer] [facility] Department[facility]; [facility] Start: 07-28-2014 Patient Education Prostate Cancer: prostate Indication: Elevated PSA Start: 28-Jul-2014 Instruction Type: Patient Education [facility].; [facility] Start: 07-28-2014 Blood occult peroxidase actv qual feces 1 deter OCCULT BLOOD FECES SCREEN X3 (IN OFFICE) (62203) Start: 28-Jul-2014 13:35 Request [facility]; [facility] Start: 2013 Pneumococcal Vaccine: 65+ (1 - PCV) Pneumococcal Vaccine: 65+ (1 - PCV) [facility] Start: 2008 RSV Vaccine (1 - 1-dose 60+ series) RSV Vaccine (1 - 1-dose 60+ series) [facility] Start: 1998 Shingrix Vaccine (1 of 2) Shingrix Vaccine (1 of 2) [facility] Start: 1993 Cologuard (FIT-DNA) Cologuard (FIT-DNA) [facility] Start: 1993 Colonoscopy Colonoscopy [facility] Start: 1993 Colorectal Cancer Screening Colorectal Cancer Screening [facility] Start: [address] Colonography [facility] Start: 1993 Fecal Occult Blood Fecal Occult Blood [facility] Start: 1993 Sigmoidoscopy Sigmoidoscopy [facility] Start: 1983 Lipid 1996 panel - Serum or Plasma Lipid Screening [facility] Start: 1967 Urine microalbumin profile DTaP,Tdap,Td Vaccine (1 - Tdap) [facility] Start: 1966 Hepatitis C Screening Hepatitis C Screening [facility] Start: 1948 Covid-19 Vaccine (#1) Covid-19 Vaccine (#1) [facility] Immunizations Immunization Date Immunization Notes Care Provider Toribio stevenson influenza virus vaccine, unspecified formulation CLARK JACOME CABLE WORKER HELPER-C Work Phone: [facility]; [facility] Payers Date Payer Category Payer Unknown [id number] 2023 Unknown 2 2023 Unknown [id number] 1948 Unknown [id number] 1948 Unknown [id number] [id number] 1948 Unknown [id number] [id number] 1948 Unknown [id number] 1948 Unknown [id number] [id number] 1948 Unknown [id number] Social History Date Type Detail Facility Tobacco smoking status ORIS Tobacco smoking consumption unknown [facility] Start: 1950 Sex Assigned At Not on file [facility] Start: 10-01-2023 Gender identity Not on file [facility] Start: 10-01-2023 Tobacco smoking status NHIS Smokes tobacco daily [facility] History of tobacco use Cigar Smoker [facility] Start: 10-01-2023 Tobacco use and exposure Smokeless tobacco non-user [facility] Start: 10-01-2023 History of Social function [facility] Start: 10-01-2023 Tobacco Comment Smokes one pac k of cigars weekly [facility] Alcohol Use: Alcohol Use: ; N ever used alcohol. [facility].; [facility] Tobacco use: Tobacco use: ; Lilly cespedes. Current every day smoker. [employer] [facility] Department[facility].; [facility]. Male [facility] [employer] [facility] Department[facility].; [facility] Work Phone: Smoker [facility] [employer] [facility] DepartmentLearn [facility].; [facility]. Work Phone: Progress note 12-02-2023 Note Date & Type Note Facility 12-02-2023 Note HNO ID: [id number] Author: SALLIE NUNEZ DO Service: ? Author Type: Fellow Type: Progress Notes Filed: 12/02/2023 12:27 Note Text: [facility] Multidisciplinary Imxppm-Jpqjdpvcs-Gnuhvud AND Upper GI Case Conference -- Consensus Note -- Conference Date: 12/02/2023 Case reviewed with physicians from GI, Surgery, AND Radiology services: -- Surgeons - Leny Pompa Augustin, Naffouje, Prashanth, and Mary -- Gastroenterologists - Rhona -- Radiologist - Beatriz Issue(s) Question(s): 73 year old male who was incidentally found to have a pancreatic cyst on workup for prostate cancer. Has poorly controlled diabetes. Otherwise, he is asymptomatic with no pancreatic insufficiency or gastric outlet obstruction. 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 Author Type: Technologist [...] DEPARTMENT: MR; Exam(s) Completed: Body: Pancreas/Biliary SIGNATURE: RT Sukhwinder(Jer) PATIENT NAME: Tahir Pizano DATE: November 21, 2023 TIME: 11:34 AM [facility] Note 10-08-2023 Telephone Encounter [...] advise him that his imaging CD from [facility] is ready for him to grain picker . (Disc is in Patient Gang Bore Operator box in [facility] Front Office.) Joselyn Rocha documented in this encounter [facility] Progress note 10-01-2023 Note Date & Type Note Facility 10-01-2023 Note HNO ID: [id number] Author: Artie Kang MD Service: ? Author Type: Physician Type: Progress Notes Filed: 10/01/2023 1:02 PM Note Text: HISTORY OF PRESENT ILLNESS: Tahir Pizano is a 73 year old male recent dx prostate cancer, receiving eligard with urology, RT planned at [facility]. Staging scans identified a cystic pancreatic [...] which included preparing to see the patient, [id number] patient care, completing clinical documentation, obtaining and/or reviewing separately obtained history, counseling and educating the patient/family/caregiver, communicating with other HCPs (not separately reported), independently interpreting results (not separately reported), and communicating results to the patient/family/caregiver. Electronically Signed: Artie Kang MD October 01, 2023 12:47 PM [facility] History of Present illness Narrative 10-01-2023 Artie Kang MD - 10/01/2023 12:47 PM EST Note Date & Type Note Facility 10-01-2023 History of Presen t illness Narrative HISTORY OF PRESENT ILLNESS: Tahir Pizano is a 73 year old male recent dx prostate cancer, receiving eligard with urology, RT planned at [facility]. Staging scans identified a cystic pancreatic [...] which included preparing to see the patient, [id number] patient care, completing clinical documentation, obtaining and/or reviewing separately obtained history, counseling and educating the patient/family/caregiver, communicating with other HCPs (not separately reported), independently interpreting results (not separately reported), and communicating results to the patient/family/caregiver. Electronically Signed: Artie Kang MD October 01, 2023 12:47 PM documented in this encounter [facility] Note 09-23-2023 Telephone Encounter - Leda Hackett - 09/23/2023 2:49 PM ESTTelephone Encounter - Hoa Alvarez - 09/23/2023 2:22 PM EST Note Date & Type Note Facility 09-23-2023 Miscellaneous Notes Formattin g of this note might be different from the original. Scheduled with patient. Received referral from Nurse-Next New Either Provider DX: PROSTATE CA REF PROV: CLARK TANK [facility] [facility] LM Placed red referral in PT tpo return call folder at [facility] desk documented in this encounter [facility] Note 08-15-2023 Telephone Encounter - Carly Francois - 08/15/2023 10:40 AM EDT Note Date & Type Note Facility 08-15-2023 Miscellaneous Notes Formattin g of this note might be different from the original. Referral - Problems with prostate/Bladder not emptying X1 - Left VM for the pt to contact the office. documented in this encounter [facility] Evaluation note Note Date & Type Note Facility documented in this encounter [facility] Summary Purpose Family History No [...] DATE CREATED AUTHOR AUTHOR'S ORGANIZ ATION 08/29/2023 [facility] DATE CREATED AUTHOR AUTHOR'S ORGANIZ ATION 09/22/2023 [facility] DATE CREATED AUTHOR AUTHOR'S ORGANIZ ATION 12/03/2023 [facility] DATE CREATED AUTHOR AUTHOR'S ORGANIZ ATION 12/03/2023 [facility] Source Comments (unrecognize d section and content) In the event this informatio n is protected by the Federal Confidentiality of Alcohol and Drug Abuse Patient Records regulations: The Federal rules restrict any use of the information to criminally investigate or prosecute any alcohol or drug abuse patient.[facility] Center[facility] the event this information is protected by the Federal Confidentiality of Alcohol and Drug Abuse Patient Records regulations: The Federal rules restrict any use of the information to criminally investigate or prosecute any alcohol or drug abuse patient.[facility] Center[facility] the event this information is protected by the Federal Confidentiality of Alcohol and Drug Abuse Patient Records regulations: The Federal rules restrict any use of the information to criminally investigate or prosecute any alcohol or drug abuse patient.[facility] Center[facility] the event this information is protected by the Federal Confidentiality of Alcohol and Drug Abuse Patient Records regulations: The Federal rules restrict any use of the information to criminally investigate or prosecute any alcohol or drug abuse patient.[facility] Reason for Visit (unrecogniz ed section and content) Reason Comments New Patient Reason Comments New Patient Evaluation Reason Comments Imaging Care Teams (unrecognized sec tion and content) Pie Cutter Relationship Specialty Start Date End Date Clark Jacome CNP [id number] [place] [address] PCP - General Family Medicine 07/14/23 Pie Cutter Relationship Specialty Start Date End Date Clark JacomeOMID [id number] [place] [address] PCP - General Family Medicine 07/14/23 Pie Cutter Relationship Specialty Start Date End Date Clark JacomeOMID [id number] [place] [address] PCP - General Family Medicine 07/14/23 FOR [...] BE BASED ON THE PRIMARY CLINICAL RECORDS. [employer] provides no warranty or guarantee of the accuracy or completeness of information in this document.
--- NOTE | 2023-12-10 10:59 | MRI_ITS ---
EXAMINATION: MR Prostate WO/W Contrast COMPARISON: PET/CT 10/28/2023 CLINICAL HISTORY: 73 yo M for XRT planning for prostate cancer TECHNIQUE: Standard prostate MR protocol was used before and after administration of 13 cc of IV Clariscan. FINDINGS: Heterogeneous appearance of the central gland is consistent with benign prostatic hyperplasia. Lesion 1: LOCATION - there is a 2.8 x 2.4 x 2.7 cm moderately T2 hypointense lesion in the right transitional and peripheral zone from near base to near apex. It is bright on DWI and moderately dark on ADC map. T2 - 5 DWI - 5 DCE - positive Overall PI-RADS v2 score = 5 Lesion 2: LOCATION -1.5 x 1.5 x 1.5 cm moderately T2 hypointense lesion in the left anterior and posterolateral peripheral zone mid gland. Mildly bright on DWI and moderately dark on ADC map. T2 - 4 DWI - 3 DCE - inconclusive Overall PI-RADS v2 score = 4 Capsular margin and neurovascular bundle: No obvious macro capsular extension. There is definitely however microcapsular extension along the right border. Seminal vesicles: Not involved. Lymph nodes: No lymphadenopathy in the field of view. Bones: No suspicious lesions in the field of view. MRI/Pelvis W/WO Contrast IMPRESSION: 2.8 cm PI-RADS 5 lesion in the right TZ and PZ from near base to near apex. 1.5 cm PI-RADS 4 lesion in the left anterior and posterolateral PZ at mid gland. - No obvious macro capsular extension. There is definitely however microcapsular extension along the right border. - No evidence of seminal vesicle invasion. - No lymphadenopathy. - No suspicious bone lesions. Electronically Signed: Francisco Javier Bryant MD at 16:44 EST ,
--- NOTE | 2023-12-10 11:00 | RAD_ITS ---
STUDY: X-RAY - ORBITS REASON FOR EXAM: Male, 73 years old. HISTORY OF METAL TO EYE TECHNIQUE: 2 view(s) of the orbits were obtained. COMPARISON: None. FINDINGS: Normal bilateral orbits without a metallic orbital foreign body. Normal visualized facial bones. Normal paranasal sinuses. The soft tissue structures are unremarkable. RAD/Orbits for Foreign Body IMPRESSION: No demonstrated metallic orbital foreign body. The patient is cleared for an MRI examination. Electronically Signed: Fletcher Vogel MD at 11:10 EST ,
[2023-12-10 11:50] LABS: CREATININE FINGERSTICK < 1.0 mg/dL (0.70-1.30); EGFR FINGERSTICK > 60.0000 mL/min (>60)
== END | disposition home or self-care (01) ==
PROVIDERS: PCP Nurse Practitioner Family; Referring Provider Student in an Organized Health Care Education/Training Program; Visit Provider Student in an Organized Health Care Education/Training Program
DX: C61 Malignant neoplasm of prostate (principal)
CPT/HCPCS: 70030; 72197; A9575